=== PATIENT | male | born 1965 | race Hispanic/Latino ===

== ENCOUNTER 2018-02-24 00:38 | Inpatient (IN) | payer OTHER ==
[~2018-02-24] VITALS: Ht 175.3 cm; Wt 80.7 kg
[2018-02-24] VITALS (22 sets, daily range): BP systolic 118–155; BP diastolic 70–97
[2018-02-24] MEDS ORDERED: ONDANSETRON HCL 4 MG/2 ML VIAL ONE (00:49)
[2018-02-24] MEDS ORDERED: MEROPENEM 1 GM VIAL ONE (00:55)
[2018-02-24] MEDS ORDERED: ALBUMIN (HUMAN) 25% 50 ML IV ONE (00:55)
[2018-02-24 01:04] LABS: BASOPHILS % (AUTO) 0.5 % (0.0-5.0); HEMATOCRIT 36.6 % (42-54); LYMPHOCYTES % (AUTO) 6.3 % (21.0-51.0); MEAN CORPUSCULAR HEMOGLOBIN 30.3 pg (27.0-33.0); MEAN CORPUSCULAR HGB CONC 33.9 g/dL (32.0-36.0); MEAN CORPUSCULAR VOLUME 89.5 fL (79-99); MONOCYTES % (AUTO) 3.6 % (3.0-13.0); NEUTROPHILS % (AUTO) 89.6 % (40.0-77.0); PLATELET COUNT (AUTO) 540 K/uL (130-400); RED CELL DISTRIBUTION WIDTH 16.6 % (11.0-15.5); WHITE BLOOD COUNT (AUTO) 16.7 K/uL (4.8-10.8)
[2018-02-24 01:12] LABS: INR 1.22 (0.85-1.15); PARTIAL THROMBOPLASTIN TIME 34.1 SEC (26.3-35.5); PROTHROMBIN TIME 12.8 SEC (9.6-11.6)
[2018-02-24 01:52] LABS: ALANINE AMINOTRANSFERASE 78 U/L (12-78); CREATINE KINASE MB 1.3 ng/mL (0.5-3.6); SODIUM SERUM 134 mmol/L (136-145); TOTAL PROTEIN, SERUM 8.2 g/dL (6.0-8.3); TROPONIN I < 0.04 ng/mL (0.00-0.06)
[2018-02-24 01:54] LABS: ASPARTATE AMINOTRANSFERASE 62 U/L (10-37); BILIRUBIN,TOTAL 0.8 mg/dL (0.2-1.0); CARBON DIOXIDE 35 mmol/L (21-32); CREATINE KINASE, TOTAL 90 U/L (21-232); CREATININE 1.5 mg/dL (0.5-1.5); GLOMERULAR FILTR. RATE CALC 52 mL/min (>60); GLUCOSE,RANDOM 130 mg/dL (70-105); MYOGLOBIN 267 ng/mL (10-92); UREA NITROGEN, BLOOD 43 mg/dL (7-18)
[2018-02-24 01:56] LABS: CHLORIDE 90 mmol/L (101-111)
[2018-02-24] MEDS ORDERED: LACTATED RINGERS 1000ML 1,000 ML IV ONE ×2 (02:15→03:43)
[2018-02-24] MEDS ORDERED: LIDOCAINE HCL 2% VISCOUS 15 ML UDCUP ONE (03:52)
[2018-02-24 03:58] LABS: APPEARANCE,URINE Cloudy (CLEAR); BILIRUBIN,URINE Moderate (NEGATIVE); COLOR,URINE Dark Yellow (YELLOW); GLUCOSE, URINE (UA) Negative (NEGATIVE); KETONES,URINE Trace mg/dL (NEGATIVE); LEUKOCYTE ESTERASE ,URINE Small (NEGATIVE); NITRATE,URINE Negative (NEGATIVE); OCCULT BLOOD,URINE Negative (NEGATIVE); PROTEIN,URINE POS 1+ (NEGATIVE)
[2018-02-24] MEDS ORDERED: ONDANSETRON HCL MDV 20ML 2 MG/ML VIAL IVP PRN (04:15)
[2018-02-24 04:22] LABS: BACTERIA,URINE Few /HPF (None Seen); MUCUS,URINE Moderate LPF (None Seen); RBC,URINE 0-1 /HPF (0-1); SQUAMOUS EPITHELIAL CELL,UR Moderate /HPF (0-2)
[2018-02-24] MEDS ORDERED: MORPHINE SULFATE 2 MG/ML 1ML SYG IVP PRN (05:30)
[2018-02-24] MEDS ORDERED: MEROPENEM 500MG+NS 50ML 50 ML IV SCH (06:00)
[2018-02-24 07:03] LABS: OCCULT BLOOD,GASTRIC FLUID POSITIVE (NEGATIVE)
[2018-02-24] MEDS ORDERED: ENOXAPARIN SODIUM 40 MG/0.4 ML SYRINGE SQ SCH (09:00)
[2018-02-24] MEDS: POLYETHYLENE GLYCOL 3350 17 GM POWD.PACK PO SCH (09:00)
[2018-02-24] MEDS ORDERED: PANTOPRAZOLE 40 MG/VIAL IVP SCH ×2 (09:00→11:45)
[2018-02-24] MEDS: ENOXAPARIN SODIUM 40 MG/0.4 ML SYRINGE SQ SCH (09:00)
[2018-02-24] MEDS ORDERED: CARV25TA77 PO (09:52)
[2018-02-24] MEDS ORDERED: MORP30 PO (09:52)
[2018-02-24] MEDS ORDERED: LACT10SO PO (09:52)
[2018-02-24] MEDS ORDERED: SODI1TAB4 PO (09:52)
[2018-02-24] MEDS ORDERED: ONDA8TAB5 PO (09:52)
[2018-02-24] MEDS ORDERED: [UNRECOGNIZED DRUG - CODE] PO (09:52)
[2018-02-24] MEDS ORDERED: MORP15TA43 PO (09:52)
[2018-02-24] MEDS ORDERED: AMLO5TAB4 PO (09:52)
[2018-02-24] MEDS ORDERED: OLAN2.5T3 PO (09:52)
[2018-02-24] MEDS ORDERED: MULT-1203 PO (09:52)
[2018-02-24] MEDS ORDERED: DIPH1TAB PO (09:52)
[2018-02-24] MEDS ORDERED: LEVO75TA4 PO (09:52)
[2018-02-24] MEDS ORDERED: ALBUHFA IH (09:52)
[2018-02-24] MEDS ORDERED: CABO60TA PO (09:52)
[2018-02-24] MEDS ORDERED: ESOM40CA54 PO (09:52)
[2018-02-24] MEDS ORDERED: MAGN500T4 PO (09:52)
[2018-02-24] MEDS ORDERED: DOXA4TAB3 PO (09:52)
[2018-02-24 10:27] LABS: BASOPHILS % (AUTO) 0.2 % (0.0-5.0); HEMATOCRIT 29.2 % (42-54); LYMPHOCYTES % (AUTO) 11.6 % (21.0-51.0); MEAN CORPUSCULAR HEMOGLOBIN 30.8 pg (27.0-33.0); MEAN CORPUSCULAR HGB CONC 34.5 g/dL (32.0-36.0); MEAN CORPUSCULAR VOLUME 89.3 fL (79-99); MONOCYTES % (AUTO) 4.6 % (3.0-13.0); NEUTROPHILS % (AUTO) 83.6 % (40.0-77.0); PLATELET COUNT (AUTO) 347 K/uL (130-400); RED BLOOD CELL COUNT(AUTO) 3.27 MIL/uL (4.50-6.20); RED CELL DISTRIBUTION WIDTH 16.3 % (11.0-15.5); WHITE BLOOD COUNT (AUTO) 12.5 K/uL (4.8-10.8)
[2018-02-24 10:49] LABS: BILIRUBIN,TOTAL 0.6 mg/dL (0.2-1.0); CREATININE 1.3 mg/dL (0.5-1.5); POTASSIUM 3.8 mmol/L (3.5-5.1); TOTAL PROTEIN, SERUM 6.7 g/dL (6.0-8.3)
[2018-02-24] MEDS: SODIUM CHLORIDE 0.9% 1000ML 1,000 ML IV SCH ×2 (11:10→23:15)
[2018-02-24] MEDS ORDERED: FAMOTIDINE/PF 20 MG/2 ML VIAL IV SCH (11:30)
[2018-02-24] MEDS ORDERED: POTASSIUM CHLORIDE 20 MEQ ERTAB PO SCH (12:45)
[2018-02-24 14:38] LABS: CREATININE,URINE RANDOM 175 mg/dL (30-135); SODIUM,URINE RANDOM < 15 mmol/l (40-220)
[2018-02-24] MEDS: MEROPENEM 500 MG VIAL IVP SCH ×2 (14:57→22:58)
[2018-02-24] MEDS ORDERED: MIDAZOLAM HCL 1 MG/ML 2ML VIAL ONE ×2 (18:56→19:06)
[2018-02-24] MEDS ORDERED: MEPERIDINE-PF 50 MG/ML SYG ONE (18:57)
[2018-02-24] MEDS: PANTOPRAZOLE 40 MG/VIAL IVP SCH (22:57)
[2018-02-25 03:47] VITALS: BP 133/81
[2018-02-25 04:33] LABS: HEMATOCRIT 27.1 % (42-54); MEAN CORPUSCULAR HEMOGLOBIN 32.2 pg (27.0-33.0); MEAN CORPUSCULAR HGB CONC 35.8 g/dL (32.0-36.0); PLATELET COUNT (AUTO) 295 K/uL (130-400); RED BLOOD CELL COUNT(AUTO) 3.01 MIL/uL (4.50-6.20); RED CELL DISTRIBUTION WIDTH 16.1 % (11.0-15.5)
[2018-02-25 04:44] LABS: PHOSPHORUS 2.4 mg/dL (2.5-4.9); POTASSIUM 3.6 mmol/L (3.5-5.1)
[2018-02-25 05:00] LABS: BAND NEUTROPHILS % (MANUAL) 27 % (0-2); LYMPHOCYTES % (MANUAL) 30 % (22-44); MAN.DIFF COMMENT-IMPRESSION MANUAL DIFFERENTIAL; SEGMENTED NEUTROPHILS % 43 % (40-70)
[2018-02-25 05:01] LABS: PLATELET MORPHOLOGY COMMENT ADEQUATE
[2018-02-25] MEDS: MEROPENEM 500 MG VIAL IVP SCH ×3 (06:09→22:42)
[2018-02-25 07:32] VITALS: BP 134/79
[2018-02-25] MEDS: SODIUM CHLORIDE 0.9% 1000ML 1,000 ML IV SCH ×2 (07:50→22:47)
[2018-02-25] MEDS: POLYETHYLENE GLYCOL 3350 17 GM POWD.PACK PO SCH (09:00)
[2018-02-25] MEDS: PANTOPRAZOLE 40 MG/VIAL IVP SCH ×2 (09:00→22:41)
[2018-02-25] MEDS: ENOXAPARIN SODIUM 40 MG/0.4 ML SYRINGE SQ SCH (09:00)
[2018-02-25 11:07] VITALS: BP 143/85
[2018-02-25] MEDS: LIDOCAINE HCL 2% 20ML IV SCH (12:15)
[2018-02-25] MEDS ORDERED: POTASSIUM CHLORIDE 20MEQ/100ML 100 ML IV SCH (12:15)
[2018-02-25] MEDS ORDERED: POTASSIUM CHLORIDE 20 MEQ/100 ML BAG IV SCH (12:15)
[2018-02-25 16:06] VITALS: BP 153/84
[2018-02-25 19:31] VITALS: BP 154/51
[2018-02-25] MEDS: SUCRALFATE 1 GM/10 ML PO SCH (22:42)
[2018-02-25 23:31] VITALS: BP 150/90
[2018-02-26 03:59] VITALS: BP 145/79
[2018-02-26 04:40] LABS: HEMATOCRIT 29.1 % (42-54); MEAN CORPUSCULAR HEMOGLOBIN 30.6 pg (27.0-33.0); MEAN CORPUSCULAR HGB CONC 33.8 g/dL (32.0-36.0); MEAN CORPUSCULAR VOLUME 90.8 fL (79-99); PLATELET COUNT (AUTO) 256 K/uL (130-400); RED CELL DISTRIBUTION WIDTH 16.4 % (11.0-15.5); WHITE BLOOD COUNT (AUTO) 12.3 K/uL (4.8-10.8)
[2018-02-26 04:51] LABS: POTASSIUM 3.8 mmol/L (3.5-5.1)
[2018-02-26 05:16] LABS: BAND NEUTROPHILS % (MANUAL) 8 % (0-2); LYMPHOCYTES % (MANUAL) 8 % (22-44); MAN.DIFF COMMENT-IMPRESSION MANUAL DIFFERENTIAL; METAMYELOCYTES % 2 % (0-0); MONOCYTES % (MANUAL) 2 % (2-9); PLATELET MORPHOLOGY COMMENT ADEQUATE; REACTIVE LYMPHOCYTES 1 % (0-0); SEGMENTED NEUTROPHILS % 79 % (40-70)
[2018-02-26] MEDS: MEROPENEM 500 MG VIAL IVP SCH (05:44)
[2018-02-26 07:32] VITALS: BP 148/85
[2018-02-26] MEDS: SUCRALFATE 1 GM/10 ML PO SCH (08:54)
[2018-02-26] MEDS: POLYETHYLENE GLYCOL 3350 17 GM POWD.PACK PO SCH (08:54)
[2018-02-26] MEDS: PANTOPRAZOLE 40 MG/VIAL IVP SCH (09:13)
[2018-02-26 11:19] VITALS: BP 147/84
[2018-02-26] MEDS: LIDOCAINE HCL 2% 20ML IV SCH (12:15)
[2018-02-26] MEDS: SODIUM CHLORIDE 0.9% 1000ML 1,000 ML IV SCH (12:45)
[2018-02-26 16:17] VITALS: BP 142/94
== END 2018-02-26 19:05 | disposition home or self-care (01) | DRG 872 ==
LOC: EDH 00:38 → EDHIP 03:40 → 2CH 09:03 → 2DH 12:02
PROVIDERS: ADMIT Internal Medicine Nephrology; ATTEND Internal Medicine Nephrology
PROC: 0D9670Z Drainage of Stomach with Drainage Device, Via Natural or Artificial Opening (ICD-10-PCS; principal; 2018-02-24)
PROC: 0DJ08ZZ Inspection of Upper Intestinal Tract, Via Natural or Artificial Opening Endoscopic (ICD-10-PCS; 2018-02-24)
DX: A41.9 Sepsis, unspecified organism (principal); K56.609 Unspecified intestinal obstruction, unspecified as to partial versus complete obstruction; K92.0 Hematemesis; N17.9 Acute kidney failure, unspecified; E44.0 Moderate protein-calorie malnutrition; C64.9 Malignant neoplasm of unspecified kidney, except renal pelvis; N13.30 Unspecified hydronephrosis; N39.0 Urinary tract infection, site not specified; D64.9 Anemia, unspecified; E86.9 Volume depletion, unspecified; I10 Essential (primary) hypertension; K27.9 Peptic ulcer, site unspecified, unspecified as acute or chronic, without hemorrhage or perforation; Z85.528 Personal history of other malignant neoplasm of kidney; Z92.21 Personal history of antineoplastic chemotherapy; Z88.8 Allergy status to other drugs, medicaments and biological substances
CPT/HCPCS: 36415; 71045; 71250; 74176; 80048; 80053; 81001; 82271; 82550; 82553; 82570; 83605; 83874; 83880; 84100; 84300; 84484; 85025; 85378; 85610; 85730; 86850; 86900; 86901; 87040; 87088; 93005; 99291; A4218; C9113; J2175; J2185; J2250; J2405; J7030; J7120; P9047